=== PATIENT | male | born 1970 | race Caucasian/White ===

== ENCOUNTER 2020-08-04 13:52 | Inpatient (IN) | payer SELFPAY ==
[~2020-08-04] VITALS: Ht 177.8 cm; Wt 87.5 kg
[2020-08-04] MEDS ORDERED: OMEPRAZOLE MAGN20 MG PO (14:22)
[2020-08-04 14:52] LABS: BASOPHILS ABSOLUTE AUTO 0.02 K/mm3 (0.00-0.23); BASOPHILS PERCENT AUTO 0 % (0-2); EOSINOPHILS PERCENT AUTO 2 % (0-6); Hematocrit 48.9 % (37.0-53.0); Hemoglobin 16.2 g/dL (13.5-17.5); IMMATURE GRAN ABSOLUTE AUTO 0.01 K/mm3 (0.00-0.10); IMMATURE GRAN PERCENT AUTO 0 % (0-1); LYMPHOCYTES PERCENT AUTO 24 % (21-46); MONOCYTES ABSOLUTE AUTO 0.29 K/mm3 (0.16-1.47); MONOCYTES PERCENT AUTO 5 % (4-13); Mean Corpuscular HGB 28.6 pg (26.0-34.0); Mean Corpuscular HGB Conc 33.1 g/dL (31.5-36.5); Mean Corpuscular Volume 86 fL (80-100); Mean Platelet Volume 9.7 fL (9.1-12.4); NEUTROPHILS ABSOLUTE AUTO 4.37 K/mm3 (1.96-9.15); NEUTROPHILS PERCENT AUTO 70 % (41-73); Platelet Count 304 K/mm3 (150-400); RDW Coefficient Variation 13.5 % (11.7-14.2); RDW Standard Deviation 42.5 fL (35.1-46.3); Red Blood Cell Count 5.67 M/mm3 (4.30-5.90); White Blood Cell Count 6.29 K/mm3 (4.00-11.30)
[2020-08-04 15:37] LABS: Alanine Aminotransfer (ALT/SGP 91 U/L (12-78); Albumin, Blood 3.8 g/dL (3.4-5.0); Alk Phos 163 U/L (50-136); Anion Gap 7 mmol/L (6-16); Aspartate Aminotrans (AST/SGOT 34 U/L (12-37); Bilirubin, Total 0.4 mg/dL (0.1-1.0); Blood Urea Nitrogen 16 mg/dL (8-24); Bun/Creatinine Ratio 18.6 (12.0-20.0); CO2, Blood 26 mmol/L (21-32); Calcium, Blood 9.9 mg/dL (8.5-10.1); Chloride, Blood 109 mmol/L (98-108); Creatinine, Blood 0.86 mg/dL (0.60-1.20); Globulin, Blood 3.8 g/dL (2.2-4.0); Glomerular Filtration Rate >60 (60-); Glucose, Blood 109 mg/dL (70-99); Potassium, Blood 4.3 mmol/L (3.5-5.5); Sodium, Blood 142 mmol/L (136-145); Total Protein, Blood 7.6 g/dL (6.4-8.2)
[2020-08-04] MEDS ORDERED: Saw Palmetto160 MG PO (16:55)
[2020-08-04] MEDS ORDERED: KIRKLAND SLEEP AID PO (17:59)
--- NOTE | 2020-08-04 18:25 | NUR ---
ARRIVES VIA W/C AT ABOUT 1700. PER DR.OLSON BOSTON FOR PATIENT TO TAKE OWN MEDS WHICH HE TAKES 3 DIFFERENT ONES. 2 SENT TO PHARMACY AND WILL BRING IN OTHER. LUNGS CLEAR. ABD TENDER LLQ WITH ACTIVE BOWEL SOUNDS T/O. 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 PRESENT HX OF LLQ PAIN X 2-3 WEEKS W/LOW GRADE FEVER. NO N/V/D. PER CT PERF COLON WITH ABSCESS. PER HOSPITALIST WILL BE TRYING TO MANAGE MEDICALLY WITHOUT SURGERY. ALERT. ORIENTED. COOPERATIVE. PLEASANT. UNLABORED RESPIRATIONS. AT THIS TIME STS ABD TENDER WHEN USING BATHROOM OR DURING MOVEMENT. WCTM
[2020-08-04 18:48] LABS: Source, Urine Voided
[2020-08-04 18:55] LABS: Appearance, Urine Clear (Clear); Bilirubin, Urine Neg (Neg); Blood, Urine Neg (Neg); Color, Urine Yellow (P-Yellow); Glucose Qualitative, Urine Neg (Neg); Ketones, Urine Neg (Neg); Leukocyte Esterase, Urine Neg (Neg); Nitrite, Urine Neg (Neg); Protein, Urine Neg (Neg); Urobilinogen, Urine NORM (Normal); pH, Urine 6.5 (5.0-8.0)
[2020-08-05 05:39] LABS: BASOPHILS ABSOLUTE AUTO 0.01 K/mm3 (0.00-0.23); BASOPHILS PERCENT AUTO 0 % (0-2); EOSINOPHILS ABSOLUTE AUTO 0.12 K/mm3 (0.00-0.68); EOSINOPHILS PERCENT AUTO 3 % (0-6); Hematocrit 44.3 % (37.0-53.0); Hemoglobin 14.4 g/dL (13.5-17.5); IMMATURE GRAN ABSOLUTE AUTO 0.01 K/mm3 (0.00-0.10); IMMATURE GRAN PERCENT AUTO 0 % (0-1); LYMPHOCYTES ABSOLUTE AUTO 1.43 K/mm3 (0.84-5.20); LYMPHOCYTES PERCENT AUTO 35 % (21-46); MONOCYTES ABSOLUTE AUTO 0.32 K/mm3 (0.16-1.47); MONOCYTES PERCENT AUTO 8 % (4-13); Mean Corpuscular HGB Conc 32.5 g/dL (31.5-36.5); Mean Corpuscular Volume 86 fL (80-100); Mean Platelet Volume 9.7 fL (9.1-12.4); NEUTROPHILS PERCENT AUTO 54 % (41-73); Platelet Count 229 K/mm3 (150-400); RDW Coefficient Variation 13.7 % (11.7-14.2); RDW Standard Deviation 43.7 fL (35.1-46.3); Red Blood Cell Count 5.14 M/mm3 (4.30-5.90); White Blood Cell Count 4.09 K/mm3 (4.00-11.30)
[2020-08-05 06:06] LABS: Alanine Aminotransfer (ALT/SGP 62 U/L (12-78); Albumin, Blood 3.1 g/dL (3.4-5.0); Albumin/Globulin Ratio 1.1 (0.8-1.8); Alk Phos 128 U/L (50-136); Anion Gap 6 mmol/L (6-16); Aspartate Aminotrans (AST/SGOT 20 U/L (12-37); Bilirubin, Total 0.6 mg/dL (0.1-1.0); Blood Urea Nitrogen 13 mg/dL (8-24); Bun/Creatinine Ratio 16.9 (12.0-20.0); CO2, Blood 27 mmol/L (21-32); Calcium, Blood 8.9 mg/dL (8.5-10.1); Chloride, Blood 110 mmol/L (98-108); Creatinine, Blood 0.77 mg/dL (0.60-1.20); Globulin, Blood 2.9 g/dL (2.2-4.0); Glomerular Filtration Rate >60 (60-); Glucose, Blood 104 mg/dL (70-99); Sodium, Blood 143 mmol/L (136-145)
--- NOTE | 2020-08-05 06:24 | NUR ---
SHIFT SUPERVISOR MELTING SUMMARY NO ACUTE CHANGES. PT AAOX4 AND INDEPENDENT IN ROOM. CONTINUED ON FULL LIQUIDS AND IV ABX. PT STATES ABD PAIN IS CLOSE TO NONE AND FEELS MUCH IMPROVED. HAS RESTED MOST OF THE NIGHT. HAD ONE SMALL BROWN BM. VSS, WILL CONTINUE TO MONITOR.
[2020-08-05] MEDS ORDERED: AMOCLA875 PO (15:40)
--- NOTE | 2020-08-05 16:27 | NUR ---
DISCHARGE NOTES PT LEFT FOR DISCHARGED AT 1628 WITH . PT WAS PROVIDED EDUCATION FOR DIET TOLERATED W/ LOW SALT AND LOW FAT. HE WILL FOLLOW UP WITH PCP AT [facility] IN A WEEK. NEW PT PACKET HAS BEEN FILLED OUT, LEFT AT NURSING STATION FOR CJ FRAGA TO PHARMACY MANAGER AND DELIVER TO RUBÉN ([facility] MANAGER SOCIAL RESPONSIBILITY) FOR REVIEW NEW PATIENT. PT C/O LUMP ABOVE IV SITE ON LEFT AC, CALLED DR. YI ADVISE PT TO TAKE ASA FOR A WEEK AND REPORT ANY WORSENING OR PAIN. PT DENIES PAIN ON LEFT AC LUMP, NO INFLITRATION. PT WAS ALSO NOTIFIED OF NEW MED OF AUGMENTIN CALLED IN TO PHARMACY AND HE IS OK TO START TAKING THIS MED TONIGHT. EDUC TO FINISH 10 DAY DOSE, TAKE PROBIOTICS AND REPORT ANY WORSENING SYMPTOMS TO PCP. PT WALKED OUT WITH , DENIES W/C ASSIST.
== END 2020-08-05 16:25 | disposition home or self-care (01) | DRG 392 ==
LOC: ER 13:52 → MEDS 16:39
PROVIDERS: Physician Assistant; ADMIT Internal Medicine
DX: K57.80 Diverticulitis of intestine, part unspecified, with perforation and abscess without bleeding (principal); K21.9 Gastro-esophageal reflux disease without esophagitis; G47.00 Insomnia, unspecified
CPT/HCPCS: 36415; 80053; 81003; 83605; 83690; 85025; 85651; 96361; 96365; 99284-25; J0696; J2543; J7030

== ENCOUNTER 2020-08-10 10:21 | Emergency (ER) | payer SELFPAY ==
[~2020-08-10] VITALS: Ht 177.8 cm; Wt 87.1 kg
[~2020-08-10 10:21] MED LIST: AMOCLA875 PO; KIRKLAND SLEEP AID PO; OMEPRAZOLE MAGN20 MG PO; Saw Palmetto160 MG PO
[2020-08-10 11:01] LABS: BASOPHILS ABSOLUTE AUTO 0.02 K/mm3 (0.00-0.23); BASOPHILS PERCENT AUTO 0 % (0-2); EOSINOPHILS PERCENT AUTO 2 % (0-6); Hematocrit 51.6 % (37.0-53.0); Hemoglobin 17.1 g/dL (13.5-17.5); IMMATURE GRAN ABSOLUTE AUTO 0.01 K/mm3 (0.00-0.10); IMMATURE GRAN PERCENT AUTO 0 % (0-1); LYMPHOCYTES ABSOLUTE AUTO 1.29 K/mm3 (0.84-5.20); LYMPHOCYTES PERCENT AUTO 26 % (21-46); MONOCYTES ABSOLUTE AUTO 0.24 K/mm3 (0.16-1.47); MONOCYTES PERCENT AUTO 5 % (4-13); Mean Corpuscular HGB 28.5 pg (26.0-34.0); Mean Corpuscular HGB Conc 33.1 g/dL (31.5-36.5); Mean Corpuscular Volume 86 fL (80-100); Mean Platelet Volume 10.3 fL (9.1-12.4); NEUTROPHILS PERCENT AUTO 67 % (41-73); Platelet Count 245 K/mm3 (150-400); RDW Coefficient Variation 13.4 % (11.7-14.2); RDW Standard Deviation 41.7 fL (35.1-46.3); Red Blood Cell Count 5.99 M/mm3 (4.30-5.90); White Blood Cell Count 5.06 K/mm3 (4.00-11.30)
[2020-08-10 11:11] LABS: Source, Urine Catheter
[2020-08-10 11:15] LABS: International Normalized Ratio 0.99; Prothrombin Time Results 10.6 Sec (9.7-11.5)
[2020-08-10 11:19] LABS: Bilirubin, Urine Neg (Neg); Blood, Urine Neg (Neg); Glucose Qualitative, Urine Neg (Neg); Ketones, Urine Neg (Neg); Leukocyte Esterase, Urine Neg (Neg); Nitrite, Urine Neg (Neg); Protein, Urine Neg (Neg); Specific Gravity, Urine 1.005 (1.003-1.022); Urobilinogen, Urine NORM (Normal)
[2020-08-10 11:20] LABS: Appearance, Urine Clear (Clear); Color, Urine Yellow (P-Yellow)
[2020-08-10 11:24] LABS: Alanine Aminotransfer (ALT/SGP 82 U/L (12-78); Albumin, Blood 4.1 g/dL (3.4-5.0); Albumin/Globulin Ratio 1.1 (0.8-1.8); Alk Phos 144 U/L (50-136); Anion Gap 5 mmol/L (6-16); Aspartate Aminotrans (AST/SGOT 28 U/L (12-37); Bilirubin, Total 0.5 mg/dL (0.1-1.0); Blood Urea Nitrogen 8 mg/dL (8-24); Bun/Creatinine Ratio 9.6 (12.0-20.0); CO2, Blood 30 mmol/L (21-32); Calcium, Blood 9.5 mg/dL (8.5-10.1); Chloride, Blood 105 mmol/L (98-108); Creatinine, Blood 0.83 mg/dL (0.60-1.20); Globulin, Blood 3.8 g/dL (2.2-4.0); Glomerular Filtration Rate >60 (60-); Glucose, Blood 124 mg/dL (70-99); Potassium, Blood 3.7 mmol/L (3.5-5.5); Sodium, Blood 140 mmol/L (136-145); Total Protein, Blood 7.9 g/dL (6.4-8.2)
[2020-08-10] MEDS ORDERED: AMOCLA875 PO (14:13)
== END 2020-08-10 14:35 | disposition home or self-care (01) ==
LOC: ER 10:21
PROVIDERS: Physician Assistant
DX: K57.92 Diverticulitis of intestine, part unspecified, without perforation or abscess without bleeding (principal); Z79.899 Other long term (current) drug therapy
CPT/HCPCS: 36415; 71046; 74177; 80053; 81003; 82272; 82378; 85025; 85610; 85730; 87086; 93005; 93010; 96360-59; 96361; 99284-25; J7030; Q9967

== ENCOUNTER 2020-10-13 10:16 | Day surgery (SDC) | payer BC ==
[~2020-10-13] VITALS: Ht 177.8 cm; Wt 92.3 kg
[~2020-10-13 10:16] MED LIST changes: +METR500 PO; +NEOM500 PO
--- NOTE | 2020-10-13 14:32 | NUR ---
10/13/20 1432 [facility] VAZQUEZ PT HERE FOR COLONOSCOPY FOR SUSPECTED MASS/THICKENING OF COLON ON CT IMAGING. DR. SINGLETON WAS UNABLE TO PASS THE SCOPE PAST SAID THICKENING/MASS IN SIGMOID COLON. PROCEDURE WAS FLEXIBLE SIGMOIDOSCOPY. PT IS ALREADY SCHEDULED FOR LAP COLON RESECTION TOMORROW AT [facility].
== END 2020-10-13 12:45 | disposition home or self-care (01) ==
LOC: ORSCSDS 10:16
PROVIDERS: Surgery
PROC: 3E0H8GC Introduction of Other Therapeutic Substance into Lower GI, Via Natural or Artificial Opening Endoscopic (ICD-10-PCS; principal; 2020-10-13 11:30)
PROC: 0DBN8ZX Excision of Sigmoid Colon, Via Natural or Artificial Opening Endoscopic, Diagnostic (ICD-10-PCS; principal; 2020-10-13 11:30)
DX: K57.20 Diverticulitis of large intestine with perforation and abscess without bleeding (principal); K64.8 Other hemorrhoids
CPT/HCPCS: 88305; J2405; J2704; J7120

== ENCOUNTER 2020-10-14 06:07 | Inpatient (IN) | payer BC ==
[~2020-10-14] VITALS: Wt 99.0 kg
--- NOTE | 2020-10-14 06:41 | NUR ---
ARRIVED INTO [facility] ADMISSION STARTED. NOTHING TO EAT OR DRINK. Ambulatory in Day Surgery History, Chart, Medications and Allergies reviewed before start of procedure.Lungs clear T/O to Auscultation.
[2020-10-14 07:17] LABS: BASOPHILS ABSOLUTE AUTO 0.02 K/mm3 (0.00-0.23); BASOPHILS PERCENT AUTO 0 % (0-2); EOSINOPHILS ABSOLUTE AUTO 0.13 K/mm3 (0.00-0.68); EOSINOPHILS PERCENT AUTO 3 % (0-6); Hematocrit 48.5 % (37.0-53.0); Hemoglobin 15.6 g/dL (13.5-17.5); IMMATURE GRAN ABSOLUTE AUTO 0.01 K/mm3 (0.00-0.10); IMMATURE GRAN PERCENT AUTO 0 % (0-1); LYMPHOCYTES ABSOLUTE AUTO 1.31 K/mm3 (0.84-5.20); LYMPHOCYTES PERCENT AUTO 26 % (21-46); MONOCYTES ABSOLUTE AUTO 0.38 K/mm3 (0.16-1.47); MONOCYTES PERCENT AUTO 8 % (4-13); Mean Corpuscular HGB 27.9 pg (26.0-34.0); Mean Corpuscular HGB Conc 32.2 g/dL (31.5-36.5); Mean Corpuscular Volume 87 fL (80-100); Mean Platelet Volume 9.8 fL (9.1-12.4); NEUTROPHILS ABSOLUTE AUTO 3.16 K/mm3 (1.96-9.15); NEUTROPHILS PERCENT AUTO 63 % (41-73); Platelet Count 253 K/mm3 (150-400); RDW Coefficient Variation 13.8 % (11.7-14.2); RDW Standard Deviation 44.2 fL (35.1-46.3); Red Blood Cell Count 5.59 M/mm3 (4.30-5.90); White Blood Cell Count 5.01 K/mm3 (4.00-11.30)
[2020-10-14 07:24] LABS: Anion Gap 3 mmol/L (6-16); Blood Urea Nitrogen 11 mg/dL (8-24); Bun/Creatinine Ratio 12.9 (12.0-20.0); CO2, Blood 31 mmol/L (21-32); Calcium, Blood 9.2 mg/dL (8.5-10.1); Chloride, Blood 107 mmol/L (98-108); Creatinine, Blood 0.85 mg/dL (0.60-1.20); Glomerular Filtration Rate >60 (60-); Glucose, Blood 141 mg/dL (70-99); Potassium, Blood 3.8 mmol/L (3.5-5.5); Sodium, Blood 141 mmol/L (136-145)
--- NOTE | 2020-10-14 17:07 | NUR ---
SHIFT SUMMARY S/P SIGMOID COLECTOMY. PT ALERT, ORIENTED, AND PLEASANT. USING FENTANYL SWEATBAND DECORATING MACHINE OPERATOR FOR PAIN MANAGEMENT. OSMIN DRESSING TO MIDLINE + X3 LAP SITES ARE DRY AND INTACT. PT RAMIN ICE CHIPS AND SIPS OF WATER. PT WAS NAUSEATED RIGHT OUT OF PACU, BUT HAS DENIED NAUSEA THIS EVENING. BRUNSON DRAINING CLEAR YELLOW URINE. IVF + ABX PER ORDERS. ENCOURAGING DEEP BREATHING AND I/S AT BEDSIDE. AT BEDSIDE FOR SUPPORT. CALL LIGHT WITHIN REACH.
[2020-10-15 04:11] LABS: BASOPHILS ABSOLUTE AUTO 0.02 K/mm3 (0.00-0.23); BASOPHILS PERCENT AUTO 0 % (0-2); EOSINOPHILS PERCENT AUTO 0 % (0-6); Hematocrit 37.2 % (37.0-53.0); Hemoglobin 12.1 g/dL (13.5-17.5); IMMATURE GRAN ABSOLUTE AUTO 0.02 K/mm3 (0.00-0.10); IMMATURE GRAN PERCENT AUTO 0 % (0-1); LYMPHOCYTES ABSOLUTE AUTO 1.46 K/mm3 (0.84-5.20); LYMPHOCYTES PERCENT AUTO 19 % (21-46); MONOCYTES ABSOLUTE AUTO 0.63 K/mm3 (0.16-1.47); MONOCYTES PERCENT AUTO 8 % (4-13); Mean Corpuscular HGB 28.2 pg (26.0-34.0); Mean Corpuscular HGB Conc 32.5 g/dL (31.5-36.5); Mean Corpuscular Volume 87 fL (80-100); Mean Platelet Volume 9.7 fL (9.1-12.4); NEUTROPHILS ABSOLUTE AUTO 5.47 K/mm3 (1.96-9.15); NEUTROPHILS PERCENT AUTO 72 % (41-73); Platelet Count 223 K/mm3 (150-400); RDW Coefficient Variation 14.1 % (11.7-14.2); RDW Standard Deviation 44.6 fL (35.1-46.3); Red Blood Cell Count 4.29 M/mm3 (4.30-5.90)
[2020-10-15 04:34] LABS: Anion Gap 2 mmol/L (6-16); Blood Urea Nitrogen 9 mg/dL (8-24); Bun/Creatinine Ratio 10.4 (12.0-20.0); CO2, Blood 30 mmol/L (21-32); Calcium, Blood 8.1 mg/dL (8.5-10.1); Chloride, Blood 109 mmol/L (98-108); Creatinine, Blood 0.86 mg/dL (0.60-1.20); Glomerular Filtration Rate >60 (60-); Glucose, Blood 109 mg/dL (70-99); Potassium, Blood 3.9 mmol/L (3.5-5.5); Sodium, Blood 141 mmol/L (136-145)
--- NOTE | 2020-10-15 06:46 | NUR ---
SHIFT SUMMARY PT A/O X4. S/P COLECTOMY. MIDLINE OSMIN AND 3 LAP SITES ALL WNL OVERNIGHT. PT REPORTS PASSING SOME FLATUS OVERNIGHT. PAIN MANAGED WITH CONCRETE LABORER PER ORDER. BRUNSON IN PLACE, PATENET, STAT LOCK ON. IV FLUIDS INFUSING PER ORDERS. PT RESTING IN BED WITH CALL LIGHT IN REACH AT THIS TIME.
--- NOTE | 2020-10-15 08:05 | NUR ---
DR SINGLETON HERE TO SEE PT, REPORTS TO DECREASE IVF TO 75/HR.
--- NOTE | 2020-10-15 17:34 | NUR ---
SHIFT SUMMARY PT NPO. PT BRUNSON OUT TODAY, PT VOIDING. PT HAD SEVERAL WALKS TO BATHROOM WITH ASSIST. PT FAMILY IN TO SEE PT TODAY. PT BEEN ASSISTED WITH ADL'S PRN. PT USING STEAM DRIER TENDER FOR PAIN.
--- NOTE | 2020-10-15 19:20 | NUR ---
PT TRANSFERRED TO PCU. REPORT GIVEN TO HS RN, MEDICATIONS AND ORDERS REVIEWED WITH PCU HS RN. PT BELONGINGS TO PCU 11 WITH PT. PT REMAINED IN BARIATRIC SPECIALTY BED.
--- NOTE | 2020-10-15 19:30 | NUR ---
DR SINGLETON NOTIFIED OF PT BEING TRANSFERRED TO PCU 11. DR SINGLETON REPORTS PT MAY HAVE SIPS AND CHIPS AND POPSCICLES.
--- NOTE | 2020-10-15 19:39 | NUR ---
ATTEMPT TO CALL PT FAMILY PER PT REQ, NO ONE ANSWERED PHONE, WILL INFORM HS RN.
--- NOTE | 2020-10-15 23:33 | NUR ---
PATIENT STATES PAIN CONTROLLED WITH TIP OUT WORKER, PAIN SEVERITY IS 4/10. PAIN INCREASES WITH MOVEMENT IN BED OR WHILE STANDING AND WALKING TO BR. HE REQUIRES STANDBY ASSIST WITH GETTING OOB, WITH OCCASIONAL ASSISTANCE WITH LEGS DUE TO ABDOMINAL PAIN. REQUIRES SBA WITH WALKING TO THE BR DUE TO IV TUBING AND POLE. ABDOMEN IS SOFT WITH ACTIVE BT X4, TENDERNESS WITH PALPATION. MIDLINE OSMIN DRESSING IS COMPRESSED WITH SMALL AMOUNT OF OLD BLOOD IN THE CENTER OF DRESSING. CALL LIGHT IN REACH.
[2020-10-16 04:12] LABS: BASOPHILS ABSOLUTE AUTO 0.01 K/mm3 (0.00-0.23); BASOPHILS PERCENT AUTO 0 % (0-2); EOSINOPHILS ABSOLUTE AUTO 0.15 K/mm3 (0.00-0.68); EOSINOPHILS PERCENT AUTO 3 % (0-6); Hematocrit 37.7 % (37.0-53.0); Hemoglobin 12.3 g/dL (13.5-17.5); IMMATURE GRAN ABSOLUTE AUTO 0.01 K/mm3 (0.00-0.10); IMMATURE GRAN PERCENT AUTO 0 % (0-1); LYMPHOCYTES PERCENT AUTO 25 % (21-46); MONOCYTES ABSOLUTE AUTO 0.46 K/mm3 (0.16-1.47); MONOCYTES PERCENT AUTO 8 % (4-13); Mean Corpuscular HGB 28.5 pg (26.0-34.0); Mean Corpuscular HGB Conc 32.6 g/dL (31.5-36.5); Mean Corpuscular Volume 88 fL (80-100); Mean Platelet Volume 9.7 fL (9.1-12.4); NEUTROPHILS ABSOLUTE AUTO 3.64 K/mm3 (1.96-9.15); NEUTROPHILS PERCENT AUTO 64 % (41-73); Platelet Count 197 K/mm3 (150-400); RDW Coefficient Variation 13.9 % (11.7-14.2); RDW Standard Deviation 44.7 fL (35.1-46.3); Red Blood Cell Count 4.31 M/mm3 (4.30-5.90); White Blood Cell Count 5.67 K/mm3 (4.00-11.30)
[2020-10-16 04:28] LABS: Anion Gap 4 mmol/L (6-16); Blood Urea Nitrogen 8 mg/dL (8-24); Bun/Creatinine Ratio 10.2 (12.0-20.0); CO2, Blood 32 mmol/L (21-32); Calcium, Blood 8.3 mg/dL (8.5-10.1); Chloride, Blood 106 mmol/L (98-108); Creatinine, Blood 0.79 mg/dL (0.60-1.20); Glomerular Filtration Rate >60 (60-); Glucose, Blood 85 mg/dL (70-99); Potassium, Blood 3.7 mmol/L (3.5-5.5); Sodium, Blood 142 mmol/L (136-145)
--- NOTE | 2020-10-16 05:02 | NUR ---
PATIENT IS ABLE TO GET OOB BETTER ON HIS OWN. HIS PAIN IS BETTER CONTROLLED THIS AM WITH LESS USAGE OF THE CRAYON SORTING MACHINE FEEDER (PT STATED). VOIDING WELL, AND TAKING SIPS AND ICE CHIPS WITHOUT NAUSEA OR VOMITING. NO ACUTE CHANGES. CALL LIGHT IN REACH.
--- NOTE | 2020-10-16 15:26 | NUR ---
PT REQUESTED PAIN MEDICATION. I CAME IN WITH 25 MCG OF FENTANYL AND HE REFUSED THE IV FENTANYL. I WASTED WITH RN SHARON IN THE PYXIS. PT WANTS TO WAIT FOR PO PAIN MEDICATION WHICH IS DUE AT 1700.
--- NOTE | 2020-10-16 16:11 | NUR ---
SHIFT SUMMARY: POD 2 SIGMOID COLECTOMY PT HAS BEEN ALERT AND ORIENTED X4 THROUGHOUT SHIFT. HE HAS BEEN TOLERATING SMALL SIPS OF HIS CLEAR LIQUID DIET. HE HAS AMBULATED THE BREAUX AND PLANS TO DO IT AGAIN BEFORE DINNER. VS ARE WNL AND IS ON RA. HE WAS TAKEN OFF OF HIS GLOVE PARTS INSPECTOR PUMP AND PAIN HAS BEEN CONTROLLED WITH 1 NORCO. HE HAS BEEN VOIDING YELLOW URINE. CALLS APPROPRIATELY. CALL LIGHT IS WITHIN REACH. HE WAS ALSO ABLE TO SIT UP IN A CHAIR TODAY TOO. THE PLAN IS TO KEEP ENCOURAGING MOVEMENT, FLUIDS, AND KEEP PAIN UNDER CONTROL.
--- NOTE | 2020-10-17 04:52 | NUR ---
SHIFT SUMMARY COLLECTOMY POD3, A/O X4, VSS, AMBULATORY TO BATHROOM W/ 1 PERSON SBA, VOIDING WELL, PASSING FLATUS, TOLERATING PO, PAIN WELL CONTROLLED PER EMAR, DRESSING DRY W/ SCANT DRAINAGE. CALL LIGHT IN REACH, WILL CONTINUE TO MONITOR AND REPORT TO ONCOMING DAY RN.
--- NOTE | 2020-10-17 16:39 | NUR ---
SHIFT SUMMARY: POD 3 CHOLECTOMY ALERT AND ORIENTED X4. HIS VITAL SIGNS ARE WNL AND IS ON RA. PAIN IS CONTROLLED WITH NORCO AND TYLENOL. HE IS A 1 PERSON ASSIST TO BATHROOM. HE WAS ABLE TO HAVE A BOWEL MOVEMENT THIS SHIFT WELL PASSING FLATUS. HE IS TOLERATING PO INTAKE. DRESSING IS DRY WITH A SCANT AMOUNT OF DRAINAGE. HIS IS IN THE ROOM WITH HIM AT THIS TIME. HE IS LAYING IN BED SEEMS TO BE MORE RELAXED THAN EARLIER THIS SHIFT. CALL LIGHT IS WITHIN REACH. HE CALLS APPROPRIATELY. HE HAS AMBULATED TWICE IN THE [place]ALLWAYS TODAY. THE PLAN IS TO KEEP ENCOURAGING PO INTAKE AND AMBULATION IN HALLWAYS.
--- NOTE | 2020-10-18 06:27 | NUR ---
SHIFT SUMMARY POD4 CHOLECTOMY. A0X4. VSS. ABD PAIN MANAGED WITH 1 OXI AND SCHEDULED TYLENOL. PT HAS PASS FLATUS AND HAD A SMALL BM LAST NIGHT. TOLERATING CLEAR LIQ DIET/PO INTAKE WELL DENIES N/V. PT HAD OSMIN MIDLINE WITH SMALL DRY DRAINAGE, COMPRESSED AND INTACT. 3 LAP SITES, DRESSING CDI. AMBULATING W/ SBA AND WALKER. PT HAS UNSTEADY GAIT R/T UNEVEN LENGTH OF LOWER EXT (CHRONIC). ADEQUATE URINE OUTPUT. SALINE LOCK. CALL LIGHT W/IN REACH.
--- NOTE | 2020-10-18 07:24 | NUR ---
POD 4 S/P COLECTOMY. PT VSS T/O NIGHT. OSMIN DRESSING INTACT W/SEAL AND SX MAINTAINED. PT RAMIN CL PO, NO N/V, REP +FLATUS AND SMALL UNFORMED BM, IS VOIDING URINE W/O DIFFICULTY. PT UP IN ROOM W/FWW+SBA, RAMIN WELL. PT USING CALL LIGHT FOR ASSISTANCE, BEDSIDE REPORT GIVEN TO DAY RN. DR SINGLETON UPDATED DURING AM ROUNDING.
--- NOTE | 2020-10-19 06:34 | NUR ---
SHIFT SUMMARY PT A0X4. POD5 COLECTOMY.PAIN MANAGED W/ SCHEDULE TYLENOL AND 1 OXY. 2 ABD LAP SITE W/ STERI STRIP, CDI. OSMIN DRESSING ON MIDLINE INCISION IS INTACT, SUCTION AND SEALED MAINTAINED. PT RAMIN FULL LIQ DIET DENIES N/V. PT HAS BEEN PASSING FLATUS. VOIDING ADEQUATELY. PT IS SBA W/ FWW RAMIN WELL. SALINE LOCK. CALL LIGHT W/IN REACH. ANTICIPATING FOR DISCHARGE AT HOME TODAY.
--- NOTE | 2020-10-19 08:44 | NUR ---
PERMISSION FOR CARE THIS PATIENT GAVE RD CARTER, STUDENT NURSE, PERMISSION TO PROVIDE CARE FOR HIM ON 10/19/2020.
[2020-10-19] MEDS ORDERED: Percocet 5-3251 EACH PO (09:24)
[2020-10-19] MEDS ORDERED: ACET325 PO (10:38)
--- NOTE | 2020-10-19 10:54 | NUR ---
DISCHARGE PT EDUCATED ON AND RECEIVED PRINTED DISCHARGE INSTRUCTIONS AND VERBALIZED AN UNDERSTANDING. HARD RX FOR PERCOCET GIVEN TO PT. IV DC'D. DRESSING SUPPLIES GIVEN TO PT. PT GATHERING ALL PERSONAL BELONGINGS AND WAITING FOR TO GET HERE TO TAKE HOME.
== END 2020-10-19 11:37 | disposition home or self-care (01) | DRG 331 ==
LOC: SURS 06:07 → PRE IP 07:30 → SURS 13:00
PROVIDERS: ADMIT Surgery
PROC: 0DTN0ZZ Resection of Sigmoid Colon, Open Approach (ICD-10-PCS; principal; 2020-10-14 07:30)
DX: C18.7 Malignant neoplasm of sigmoid colon (principal); K21.9 Gastro-esophageal reflux disease without esophagitis; G47.33 Obstructive sleep apnea (adult) (pediatric)
CPT/HCPCS: 36415; 80048; 85025; 86850; 86900; 86901; 88304; 88309; A9270; J0690; J1100; J1650; J1885; J2250; J2370; J2405; J2550; J2704; J2765; J3010; J7120

== ENCOUNTER 2020-11-16 07:09 | Day surgery (SDC) | payer BC ==
[~2020-11-16] VITALS: Ht 177.8 cm; Wt 94.5 kg
[~2020-11-16 07:09] MED LIST changes: +ACET325 PO; +Percocet 5-3251 EACH PO
--- NOTE | 2020-11-16 08:14 | NUR ---
Ambulatory in Day Surgery. History, Chart, Medications and Allergies reviewed before start of procedure. Patient confirms NPO status and agrees with scheduled surgery.
--- NOTE | 2020-11-16 10:14 | NUR ---
Patient up to Ambulate independently. Gait steady. Discharge instructions reviewed with patient. Patient verbalizes understanding. Copy given to patient to take home. Discharged via wheelchair to private car for ride home WITH
== END 2020-11-16 22:59 | disposition home or self-care (01) ==
LOC: ORSCMMR 07:09 → ORD 08:30 → ORSCMMR 22:59
PROVIDERS: Surgery
PROC: B5131ZA Fluoroscopy of Right Jugular Veins using Low Osmolar Contrast, Guidance (ICD-10-PCS; principal; 2020-11-16 08:30)
PROC: 05HM33Z Insertion of Infusion Device into Right Internal Jugular Vein, Percutaneous Approach (ICD-10-PCS; principal; 2020-11-16 08:30)
DX: C18.7 Malignant neoplasm of sigmoid colon (principal); G47.33 Obstructive sleep apnea (adult) (pediatric); Z79.899 Other long term (current) drug therapy
CPT/HCPCS: 77001; A9270-GY; C1788; J0690; J1100; J1642; J2250; J2405; J2704; J2765; J3010; J7120

== ENCOUNTER 2021-02-06 17:51 | Emergency (ER) | payer BC ==
[~2021-02-06] VITALS: Ht 177.8 cm; Wt 95.2 kg
[2021-02-06] MEDS ORDERED: PROM25 PO (18:44)
[2021-02-06] MEDS ORDERED: OLAN5 PO (18:45)
[2021-02-06 19:12] LABS: Hematocrit 47.8 % (37.0-53.0); Hemoglobin 16.4 g/dL (13.5-17.5); Mean Corpuscular HGB Conc 34.3 g/dL (31.5-36.5); Mean Corpuscular Volume 85 fL (80-100); Mean Platelet Volume 10.3 fL (9.1-12.4); Platelet Count 108 K/mm3 (150-400); RDW Coefficient Variation 15.1 % (11.7-14.2); RDW Standard Deviation 46.9 fL (35.1-46.3); Red Blood Cell Count 5.65 M/mm3 (4.30-5.90); White Blood Cell Count 19.86 K/mm3 (4.00-11.30)
[2021-02-06 19:23] LABS: Anion Gap 5 mmol/L (6-16); Blood Urea Nitrogen 19 mg/dL (8-24); Bun/Creatinine Ratio 24.4 (12.0-20.0); CO2, Blood 28 mmol/L (21-32); Calcium, Blood 9.2 mg/dL (8.5-10.1); Chloride, Blood 105 mmol/L (98-108); Creatinine, Blood 0.78 mg/dL (0.60-1.20); Glomerular Filtration Rate >60 (60-); Glucose, Blood 151 mg/dL (70-99); Potassium, Blood 3.6 mmol/L (3.5-5.5); Sodium, Blood 138 mmol/L (136-145)
[2021-02-06 19:40] LABS: BAND PERCENT MAN 10 % (0-8); BASOPHILS PERCENT MAN 0 % (0-2); EOSINOPHILS ABSOLUTE MAN 0.19 K/mm3 (0.00-0.68); EOSINOPHILS PERCENT MAN 1 % (0-6); LYMPHOCYTES ABSOLUTE MAN 2.97 K/mm3 (0.84-5.20); LYMPHOCYTES PERCENT MAN 15 % (21-46); METAMYELOCYTE ABSOLUTE MAN 0.79 K/mm3 (0.00-0.00); METAMYELOCYTE PERCENT MAN 4 % (0-0); MONOCYTES ABSOLUTE MAN 0.79 K/mm3 (0.16-1.47); MONOCYTES PERCENT MAN 4 % (4-13); NEUTROPHILS ABSOLUTE MAN 15.09 K/mm3 (1.96-9.15); SEG NEUTROPHILS PERCENT MAN 66 % (41-73); TOTAL CELLS COUNTED 100
[2021-02-06] MEDS ORDERED: Keflex500 MG PO (21:28)
[2021-02-10] MEDS ORDERED: OXYC5 PO (16:06)
[2021-02-10] MEDS ORDERED: Cephalexin500 MG PO (16:12)
[2021-02-10] MEDS ORDERED: OLANZAPINE5 MG PO (16:12)
== END 2021-02-06 21:50 | disposition home or self-care (01) ==
LOC: ER 17:51
PROVIDERS: Student in an Organized Health Care Education/Training Program
DX: T80.212A Local infection due to central venous catheter, initial encounter (principal); L08.9 Local infection of the skin and subcutaneous tissue, unspecified; Z91.09 Other allergy status, other than to drugs and biological substances; Z79.899 Other long term (current) drug therapy; Z87.891 Personal history of nicotine dependence
CPT/HCPCS: 36415; 36589; 80048; 83605; 85025; 87040; 99283-25; A9270; J1642

== ENCOUNTER 2021-02-12 06:01 | Day surgery (SDC) | payer BC ==
[~2021-02-12] VITALS: Ht 177.8 cm; Wt 99.8 kg
[~2021-02-12 06:01] MED LIST changes: +Cephalexin500 MG PO; +Keflex500 MG PO; +OLAN5 PO; +OLANZAPINE5 MG PO; +OXYC5 PO; +PROM25 PO
[2021-02-12] MEDS ORDERED: IBUP800 PO (06:37)
--- NOTE | 2021-02-12 06:56 | NUR ---
Ambulatory in Day Surgery History, Chart, Medications and Allergies reviewed before start of procedure. Lungs clear T/O to Auscultation. Pre-Op teaching done. Pt verbalizes understanding. Patient States Post-Procedure ride home has been arranged.
--- NOTE | 2021-02-12 09:05 | NUR ---
CXR CLEAR PER DR WADSWORTH
--- NOTE | 2021-02-12 09:41 | NUR ---
Patient up to Ambulate independently. Gait steady. Discharge instructions reviewed with patient. Patient verbalizes understanding. Copy given to patient to take home.DERMABOND TO LEFT CHEST AND NECK CDI WITH NO DRAINAGE. Discharged via wheelchair to private car for ride home.
== END 2021-02-12 09:40 | disposition home or self-care (01) ==
LOC: ORSCMMR 06:01 → ORD 07:30 → ORSCMMR 07:30
PROVIDERS: Surgery
PROC: B544ZZA Ultrasonography of Left Jugular Veins, Guidance (ICD-10-PCS; principal; 2021-02-12 07:30)
PROC: 05HN33Z Insertion of Infusion Device into Left Internal Jugular Vein, Percutaneous Approach (ICD-10-PCS; principal; 2021-02-12 07:30)
DX: C18.7 Malignant neoplasm of sigmoid colon (principal); G47.33 Obstructive sleep apnea (adult) (pediatric); Z79.899 Other long term (current) drug therapy
CPT/HCPCS: 77001; C1788; J0690; J1642; J2250; J2370; J2704; J3010; J7120

== ENCOUNTER 2021-05-27 20:38 | Emergency (ER) | payer BC ==
[~2021-05-27] VITALS: Ht 177.8 cm; Wt 95.2 kg
[~2021-05-27 20:38] MED LIST changes: +IBUP800 PO
[2021-05-27 23:04] LABS: Mean Corpuscular HGB 31.5 pg (26.0-34.0); Mean Corpuscular HGB Conc 34.7 g/dL (31.5-36.5); Mean Corpuscular Volume 91 fL (80-100); Platelet Count 107 K/mm3 (150-400); RDW Coefficient Variation 13.5 % (11.7-14.2); RDW Standard Deviation 44.5 fL (35.1-46.3); Red Blood Cell Count 5.39 M/mm3 (4.30-5.90); White Blood Cell Count 35.72 K/mm3 (4.00-11.30)
[2021-05-27 23:22] LABS: Alanine Aminotransfer (ALT/SGP 98 U/L (12-78); Albumin, Blood 3.7 g/dL (3.4-5.0); Albumin/Globulin Ratio 1.1 (0.8-1.8); Alk Phos 209 U/L (50-136); Anion Gap 6 mmol/L (6-16); Aspartate Aminotrans (AST/SGOT 44 U/L (12-37); Bilirubin, Total 0.7 mg/dL (0.1-1.0); Blood Urea Nitrogen 19 mg/dL (8-24); Bun/Creatinine Ratio 19.4 (12.0-20.0); CO2, Blood 28 mmol/L (21-32); Calcium, Blood 9.2 mg/dL (8.5-10.1); Chloride, Blood 101 mmol/L (98-108); Creatinine, Blood 0.98 mg/dL (0.60-1.20); Globulin, Blood 3.3 g/dL (2.2-4.0); Glomerular Filtration Rate >60 (60-); Glucose, Blood 306 mg/dL (70-99); Sodium, Blood 135 mmol/L (136-145)
[2021-05-27 23:25] LABS: BAND PERCENT MAN 30 % (0-8); BASOPHILS PERCENT MAN 0 % (0-2); EOSINOPHILS PERCENT MAN 0 % (0-6); LYMPHOCYTES ABSOLUTE MAN 1.07 K/mm3 (0.84-5.20); LYMPHOCYTES PERCENT MAN 3 % (21-46); METAMYELOCYTE ABSOLUTE MAN 0.35 K/mm3 (0.00-0.00); METAMYELOCYTE PERCENT MAN 1 % (0-0); MONOCYTES ABSOLUTE MAN 0.35 K/mm3 (0.16-1.47); MONOCYTES PERCENT MAN 1 % (4-13); NEUTROPHILS ABSOLUTE MAN 33.93 K/mm3 (1.96-9.15); SEG NEUTROPHILS PERCENT MAN 65 % (41-73); TOTAL CELLS COUNTED 100
[2021-05-28 00:11] LABS: Source, Urine Clean Catch
[2021-05-28 00:24] LABS: Bilirubin, Urine Neg (Neg); Blood, Urine Neg (Neg); Glucose Qualitative, Urine 4+ (Neg); Ketones, Urine 2+ (Neg); Leukocyte Esterase, Urine Neg (Neg); Nitrite, Urine Neg (Neg); Protein, Urine Neg (Neg); Specific Gravity, Urine 1.015 (1.003-1.022); Urobilinogen, Urine NORM (Normal); pH, Urine 6.5 (5.0-8.0)
[2021-05-28 00:29] LABS: Appearance, Urine Clear (Clear); Color, Urine Yellow (P-Yellow)
== END 2021-05-28 04:24 | disposition home or self-care (01) ==
LOC: ER 20:38
PROVIDERS: Physician Assistant
DX: D72.828 Other elevated white blood cell count (principal); K21.9 Gastro-esophageal reflux disease without esophagitis; Z91.09 Other allergy status, other than to drugs and biological substances; Z79.899 Other long term (current) drug therapy; Z87.891 Personal history of nicotine dependence
CPT/HCPCS: 36415; 71045; 80053; 81003; 83605; 85025; 93005; 93010; 99284-25